=== PATIENT | female | born 1985 | race Caucasian/White ===

== ENCOUNTER 2019-04-29 07:47 | Outpatient (CLI) | payer MEDICAID, SELFPAY ==
--- NOTE | 2019-04-29 07:58 | US_ITS ---
WS: [id number] OB ultrasound, 04/29/2019 Clinical Data: SUPERVISION OF OTHER NORMAL -SECOND TRIMESTER Comparison: None. Findings: There is a single intrauterine in the breech presentation. The placenta is posterior and gr chance 0. There is a normal amount of amnionic fluid. The heart rate is 120 beats per minute. Measurements of growth and development: BPD: 5.7 cm HC: 20.8 cm AC: 18.9 cm FL: 3.9 cm The estimated weight is 572 or approximately 1 lb. 4 oz. The estimated gestational age is 23w1d with an RAJIV of approximately 08/25/2019. anatomy show a normal stomach, kidneys, bladder, cord insertion, three-vessel cord, entire spin e, four-chamber heart, lateral cerebral ventricles, cerebellum and cisterna magna. US/US OB >= 14 weeks fetus [id number] Impression: 1. Single intrauterine in vertex presentation. 2. Estimated gestational age 23w1d with an RAJIV of 08/25/2019. 3. heart rate 120 beats per minute.
[2019-04-29 09:50] LABS: Hepatitis B Surface Antigen. Non-Reactive (Nonreactive)
[2019-04-29 12:56] LABS: HIV 1 & 2 Antibody Non-Reactive (Non-Reactiv); HIV 1 & 2 Antigen Non-Reactive (Non-Reactiv)
== END 2019-04-29 07:48 | disposition home or self-care (01) ==
LOC: RAD 07:51
PROVIDERS: Family Provider Family Medicine; PCP Family Medicine; Visit Provider Midwife
DX: Z34.92 Encounter for supervision of normal pregnancy, unspecified, second trimester (principal)
CPT/HCPCS: 76805; 85025; 86850; 86900; 87340; 87806

== ENCOUNTER 2022-12-10 20:38 | Emergency (ER) | payer SELFPAY ==
[2022-12-10] VITALS (22 sets, daily range): BP systolic 129–172; BP diastolic 83–102; PULSE 63–70; RESP 16; TEMP 36.6; O2SAT 94–99; BMI 32.5
--- NOTE | 2022-12-10 21:48 | ECG_ITS ---
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 Measurements Intervals [place] Rate: 63 P: 2 UT: 145 QRS: 3 QRSD: 88 T: 49 QT: 411 QTc: 423 Interpretive Statements SINUS RHYTHM No previous ECG available for comparison Electronically Signed On 12-11-2022 6:55:50 CDT by Neyda Rae M.D. [email or web address]
--- NOTE | 2022-12-10 21:56 | W.ED.DIZZY ---
HPI - Dizziness General: Chief Complaint: Dizziness Stated Complaint: High Blood Pressure Time Seen by Provider: 12/10/22 21:44 History of Present Illness: HPI Narrative: Patient comes in today for complaints of dizziness and light headache. Patient delivered approximately 6 days ago. Patient was having dizzy spells today with a mild headache. Patient does have a history of hypertension during . Patient reports that she was on baby aspirin up until delivery. Patient appears nontoxic. Patient appears in mild to no pain. Patient denies any chronic medical problems. Associated symptoms: Denies chest pain, nausea or vomiting Associated neuro symptoms: Deny numbness in extremities Review of Systems General: Reports: 10 or more systems reviewed and unremarkable except in HPI and below Const: Denies: fever(s) Card: Denies: chest pain Resp: Denies: dyspnea GI: Denies: nausea or vomiting : Denies: difficulty voiding Musc: Denies: back pain Skin/Breast: Denies: rash Neuro: Denies: numbness in extremities Physical Exam Const: COMMON NORMALS: alert HENMT: COMMON NORMALS: normocephalic and atraumatic HEAD & SCALP: normocephalic and atraumatic Neck/C-Spine: COMMON NORMALS: full ROM Resp: COMMON NORMALS: normal respiratory effort and clear to auscultation bilaterally AUSCULTATION: clear to auscultation bilaterally Cardio: COMMON NORMALS: regular rate and regular rhythm RATE: regular rate RHYTHM: regular rhythm GI: COMMON NORMALS: Soft to palpation PALPATION: Yes Soft to palpation : COMMON NORMALS: Yes no CVA tenderness BLADDER/KIDNEY EXAM: Yes no CVA tenderness Back/Pelvis: COMMON NORMALS: no CVA tenderness Extremity: COMMON NORMALS: no pedal edema Neuro: SENSORIUM/ORIENTATION: Yes alert Skin: COMMON NORMALS: turgor normal GENERAL SKIN EXAM: turgor normal Course ED course: 0, reviewed patient with Dr. Rodriguez, attending ER physician. He recommended giving a dose of labetalol orally and waiting final results of urine the remainder of lab was completed and reviewed. Vital Signs: Vital signs: Vital Signs Temperature 97.9 F 12/10/22 20:56 Pulse Rate 68 12/11/22 00:31 Respiratory Rate 16 12/11/22 00:31 Blood Pressure 130/85 12/11/22 00:31 Pulse Oximetry 96 12/11/22 00:31 MDM - Dizziness Medical Decision Making Patient comes in today 6 days with dizziness and elevated blood pressure. On exam patient appears nontoxic. Patient reports no headache. Patient reports no chest pain or shortness of breath. On exam there is no lower extremity edema. Lung sounds are normal. Heart tones are normal. Differential diagnosis includes myocardial cardiomyopathy, hypertension, eclampsia, benign essential hypertension. CBC and CMP were unremarkable. Urinalysis showed no protein. BNP was slightly elevated at 172. EKG was normal sinus rhythm. Patient was given 100 mg of labetalol p.o. Reviewed the exam with Dr. Rodriguez, attending ER physician, he agreed with plan to continue patient on labetalol at home 100 mg twice a day with follow-up with primary care or SOCIAL WORKER ASSISTANT. Patient reported understanding and agreed to plan with need for return for worsening symptoms. Lab Data 12/10/22 21:54 12/10/22 21:54 Laboratory Results WBC 9.82 10^3/uL (3.29-11.43) 12/10/22 21:54 RBC 3.56 10^6/uL (3.85-5.65) L 12/10/22 21:54 Hgb 10.20 g/dL (11.27-16.99) L 12/10/22 21:54 Hct 31.9 % (36-47) L 12/10/22 21:54 MCV 89.6 fl (85-98) 12/10/22 21:54 MCH 28.7 pg (27-33) 12/10/22 21:54 MCHC 32.0 g/dL (30-55) 12/10/22 21:54 RDW 13.2 % (12.1-15.1) 12/10/22 21:54 Plt Count 364 10^3/cmm (157-399) 12/10/22 21:54 MPV 9.6 fL (7.4-10.4) 12/10/22 21:54 Neut % (Auto) 55.3 % 12/10/22 21:54 Lymph % (Auto) 34.1 % 12/10/22 21:54 [place] % (Auto) 6.4 % 12/10/22 21:54 Eos % (Auto) 2.4 % 12/10/22 21:54 Baso % (Auto) 0.7 % 09/17/23 21:54 Neut # (Auto) 5.42 10^3/uL (1.8-7.7) 12/10/22 21:54 Lymph # (Auto) 3.4 10^3/uL (0.8-4.8) 12/10/22 21:54 [place] # (Auto) 0.6 10^3/uL (0.2-0.9) 12/10/22 21:54 Eos # (Auto) 0.2 10^3/uL (0.0-0.8) 12/10/22 21:54 Baso # (Auto) 0.1 10^3/uL (0.0-0.1) 12/10/22 21:54 Nucleated RBC % (auto) 0 % 12/10/22 21:54 Nucleated RBCs # 0.0 /100WBC 12/10/22 21:54 Sodium 139 mmol/L (136-145) 12/10/22 21:54 Potassium 4.0 mmol/L (3.5-5.1) 12/10/22 21:54 Chloride 103 mmol/L (98-107) 12/10/22 21:54 Carbon Dioxide 27 mmol/L (22-29) 12/10/22 21:54 Anion Gap 13.0 (5-19) 12/10/22 21:54 BUN 20 mg/dL (6-20) 12/10/22 21:54 Creatinine 0.6 mg/dL (0.5-0.9) 12/10/22 21:54 GFR Calculation 112.5 mL/min (90-130) 12/10/22 21:54 Glucose 107 mg/dL (65-115) 12/10/22 21:54 Calculated Osmolality 291 mOsm/kg (285-295) 12/10/22 21:54 Calcium 8.9 mg/dL (8.5-10.5) 12/10/22 21:54 Total Bilirubin 0.2 mg/dL (0.15-1.2) 12/10/22 21:54 AST 15 U/L (0-32) 12/10/22 21:54 ALT 26 U/L (0-33) 12/10/22 21:54 Alkaline Phosphatase 109 U/L (35-105) H 12/10/22 21:54 NT-Pro-B Natriuret Pep 172 pg/mL (0-125) H 12/10/22 21:54 Total Protein 6.6 g/dL (6.6-8.7) 12/10/22 21:54 Albumin 3.7 g/dL (3.5-5.2) 12/10/22 21:54 Globulin 2.9 g/dL (1.3-4.6) 12/10/22 21:54 Urine Color Yellow (Yellow) 12/10/22 23:55 Urine Appearance Clear (CLEAR) 12/10/22 23:55 Urine pH 7 (5-7) 12/10/22 23:55 Ur Specific [place] 1.000 (1.005-1.030) L 12/10/22 23:55 Urine Protein Neg (Negative) 12/10/22 23:55 Urine Glucose (UA) Norm (Normal) 12/10/22 23:55 Urine Ketones Negative (Negative) 12/10/22 23:55 Urine Blood 3+ (Negative) H 12/10/22 23:55 Urine Nitrate Negative (Negative) 12/10/22 23:55 Urine Bilirubin Neg (Negative) 12/10/22 23:55 Urine Urobilinogen Neg mg/dL (Negative) 12/10/22 23:55 Ur Leukocyte Esterase Negative (Negative) 12/10/22 23:55 Urine RBC 25-40 /hpf (0-2) H 12/10/22 23:55 Urine WBC None /hpf (0-5) 12/10/22 23:55 Ur Squamous Epith Cells None /hpf (0-5) 12/10/22 23:55 Amorphous Sediment Not Reportable 12/10/22 23:55 Urine Bacteria None /hpf (NONE) 12/10/22 23:55 No radiology studies performed this visit EKG Data EKG 1: EKG interpretation date: 12/10/22 EKG interpretation time: 23:00 Prior EKG tracings: not available for review Interpretation: EKG shows a sinus rhythm with a regular rate at [address] elevation or ectopy is noted. No prior exam was available for comparison. Computer generated interpretation: Sinus rhythm, normal EKG, unconfirmed report Discharge Plan Discharge Patient Disposition: Home Clinical Impression: hypertension Condition: Stable Prescriptions: New labetalol 100 mg tablet 100 mg PO BID Qty: 60 2RF Discharge Orders: Discharge ED (Routine); Ordered 12/11/22 Ordered By: Frank De La Torre Referrals: Petar Todd MD [Primary Care Provider] - Discharge Diet: Usual diet Discharge Activity: Increase activity as tolerated Patient Instructions: Hypertension During (ED) Activity Restrictions/Additional Instructions: Take medication as directed. Continue of healthy diet and exercise. Follow-up with primary care in 2 to 3 days for recheck. Return to emergency department for worsening symptoms such as severe chest pain, increased shortness of breath, swelling of the extremities, or new concerns. Coding Level of Care Code ED Winding Operator for Linda Jackson
[2022-12-10 22:05] LABS: Basophils # 0.1 10^3/uL (0.0-0.1); Basophils % 0.7 %; Eosinophils # 0.2 10^3/uL (0.0-0.8); Eosinophils % 2.4 %; Hematocrit 31.9 % (36-47); Lymphocytes # 3.4 10^3/uL (0.8-4.8); Lymphocytes % 34.1 %; Mean Corpuscular Hemoglobin 28.7 pg (27-33); Mean Corpuscular Volume 89.6 fl (85-98); Mean Platelet Volume 9.6 fL (7.4-10.4); Monocytes # 0.6 10^3/uL (0.2-0.9); Monocytes % 6.4 %; Neutrophils # 5.42 10^3/uL (1.8-7.7); Neutrophils % 55.3 %; Nucleated Red Blood Cells % 0 %; Platelet Count 364 10^3/cmm (157-399); Red Blood Count 3.56 10^6/uL (3.85-5.65); Red Cell Distribution Width 13.2 % (12.1-15.1); White Blood Count 9.82 10^3/uL (3.29-11.43)
[2022-12-10 22:34] LABS: Alanine Aminotransferase 26 U/L (0-33); Albumin Level 3.7 g/dL (3.5-5.2); Alkaline Phosphatase 109 U/L (35-105); Aspartate Amino Transferase 15 U/L (0-32); Blood Urea Nitrogen 20 mg/dL (6-20); Calcium 8.9 mg/dL (8.5-10.5); Carbon Dioxide 27 mmol/L (22-29); Chloride 103 mmol/L (98-107); Globulin 2.9 g/dL (1.3-4.6); Glomerular Filtration Rate 112.5 mL/min (90-130); Glucose 107 mg/dL (65-115); NT Pro B Type Natriuretic Pept 172 pg/mL (0-125); Osmolality Calculated 291 mOsm/kg (285-295); Sodium 139 mmol/L (136-145); Total Bilirubin 0.2 mg/dL (0.15-1.2); Total Protein 6.6 g/dL (6.6-8.7)
[2022-12-10] MEDS: labetalol 200 mg Tablet 100 MG PO (23:08)
[2022-12-11] VITALS: BP 172/99
[2022-12-11 00:06] VITALS: O2SAT 94
[2022-12-11 00:10] VITALS: BP 130/85; O2SAT 95
[2022-12-11 00:15] VITALS: BP 130/85; O2SAT 95
[2022-12-11 00:19] LABS: Add Urine Microscopic? YES; Bilirubin Urine Neg (Negative); Blood Urine 3+ (Negative); Glucose Urine UA Norm (Normal); Ketones Urine Negative (Negative); Leukocyte Esterase Urine Negative (Negative); Nitrate Urine Negative (Negative); Protein Urine Neg (Negative); Urine Appearance Clear (CLEAR); Urine Color Yellow (Yellow); Urobilinogen Urine Neg (Negative); pH Urine 7 (5-7)
[2022-12-11 00:31] VITALS: BP 130/85; PULSE 68; RESP 16; O2SAT 96
[2022-12-11 00:33] LABS: Add Urine Culture? Yes; RBC Urine 25-40 /hpf (0-2)
== END 2022-12-11 00:28 | disposition home or self-care (01) ==
PROVIDERS: Emergency Provider Nurse Practitioner Family; PCP Family Medicine
DX: O16.5 Unspecified maternal hypertension, complicating the puerperium (principal)
CPT/HCPCS: 36415; 80053; 81001; 83880; 85025; 87086; 93005; 99284